=== PATIENT | female | born 1955 | race Caucasian/White ===

== ENCOUNTER 2022-06-08 16:23 | Inpatient (IN) ==
[2022-06-08] MEDS ORDERED: SODIUM CHLORIDE 0.9% 500 ML IV ONE (17:02)
[2022-06-08] MEDS ORDERED: PIPERACILLIN/TAZOBACTAM 4.5 GM/120 ML BAG IV ONE (17:02)
[2022-06-08 17:10] LABS: Basophils # (auto) 0.05 K/uL (0-0.2); Basophils % (auto) 0.5 %; Eosinophils # (auto) 0.09 K/uL (0-0.50); Eosinophils % (auto) 0.9 %; Hematocrit (blood only) 42.8 % (34.1-44.9); Hemoglobin 14.4 g/dl (12.0-16.0); Immature Granulocytes # (auto) 0.03 K/uL (0.00-0.02); Immature Granulocytes % (auto) 0.3 %; Lymphocytes # (auto) 1.39 K/uL (1.2-3.4); Lymphocytes % (auto) 13.9 %; Mean Corpuscular Hemoglobin 30.3 pg (25.0-34.0); Mean Corpuscular Hgb Conc 33.6 g/dL (32.0-36.0); Mean Corpuscular Volume 90.1 fL (80.0-100.0); Mean Platelet Volume 10.9 fL (9.4-12.3); Monocytes # (auto) 0.56 K/uL (0.24-0.82); Monocytes % (auto) 5.6 %; Neutrophils # (auto) 7.88 K/uL (1.4-6.5); Neutrophils % (auto) 78.8 %; Platelet Count 394 K/uL (130-400); RDW Coefficient of Variation 14.5 % (11.5-14.5); RDW Standard Deviation 47.6 fL (36.4-46.3); Red Blood Count 4.75 M/uL (3.93-5.22)
--- NOTE | 2022-06-08 17:13 | Emergency Department Note ---
Impression & Plan Obstructive jaundice ED Provider Note NAME: GURWINDER CASIANO AGE: 67 SEX: F : 1955 ARRIVES VIA: Walk-In INFORMANT: Patient, the patient's family member ED PROVIDER(S): Carlo Dykes DO CHIEF COMPLAINT: Jaundice HPI: The patient is a 67-year-old female who has no significant past medical history who presented to the emergency department for an evaluation of jaundice. The patient started noticing symptoms around the beginning of the year. She started noticing discoloration of her skin. She has had no abdominal pain nausea or vomiting. She was seen as an outpatient by gastroenterology group. She had outpatient laboratory studies as well as an MRCP. MRCP appears to be consistent with a thickened gallbladder with multiple gallstones. There is also a dilated common bile duct with intrahepatic ductal dilatation. There were no defects seen within the common bile duct presumably due to gallstones. The patient was also found to have an elevation in her LFTs including a total bilirubin of 11.3. She was advised to come to our facility for an ERCP. ROS: See above HPI for pertinent positives & negatives. A total of 10 systems reviewed and were otherwise negative. PAST MEDICAL HISTORY: See Below PAST SURGICAL HISTORY: See Below FAMILY HISTORY: See Below SOCIAL HISTORY: See Below HOME MEDICATIONS: See Below ALLERGIES: See Below VITALS: See Below PHYSICAL EXAMINATION: GENERAL: Patient is awake alert in no acute distress patient is resting comfortably and showing no signs of anxiety EYES: The conjunctivae are icteric. The pupils are round and reactive. EARS, NOSE, MOUTH AND THROAT: The nose is without any evidence of any deformity. Mucous membranes are moist. NECK: The neck is nontender and supple. RESPIRATORY: Normal respiratory effort is noted there is no evidence of wheezing rhonchi or rales CARDIOVASCULAR: Regular rate and rhythm noted there no murmurs rubs or gallops normal S1 normal S2. GASTROINTESTINAL: The abdomen is soft. Abdomen is nontender. MUSCULOSKELETAL/EXTREMITIES: There is no evidence of gross deformity full range of motion is noted in the hips and shoulders. SKIN: Pedal edema was noted bilaterally. Skin was warm and dry. Jaundice was appreciated. NEUROLOGIC: Patient is awake alert and oriented x3. Gait was steady. MEDICAL DECISION MAKING: The patient is a 67-year-old female who presented to the emergency department for an evaluation of abnormal labs. The patient was found to have elevated bilirubin. She is had a work-up as an outpatient which included laboratory studies as well as an MRCP. She was called by her primary gastroenterology group in [place] because of an abnormal MRCP and was told to go directly to an emergency department for an ERCP. I did review the patient's outpatient laborat ory and radiographic studies. These were faxed to our emergency department and I gave them to the admitting team. The patient was treated with IV fluids and IV antibiotics. I discussed her condition with the on-call [facility] hospitalist group. They have agreed to evaluate the patient in the emergency department for further management and disposition. Triage Nursing notes reviewed. Prior medical records reviewed Vital Signs: reviewed and remarkable for elevated blood pressure. Differential diagnosis: Patient presents with painless jaundice. Differential diagnosis could include cholecystitis, GI mass or tumor, obstructive jaundice, gallstones, infection, pancreatic pathology and other differential diagnoses were considered. ER treatment provided: See below Diagnostics interpreted by me: ECG: none Cardiac Monitoring: An order was placed for continuous cardiac monitoring. The monitor shows a rate of 101 bpm with sinus tachycardia. Laboratory studies: As stated above and show below. Imaging studies: See below. Radiographic imaging was reviewed by myself Consultation(s): I discussed the patient's condition with Dr. García who is on-call for gastroenterology. I discussed this case with Dr. Eddy who is on-call for the [facility] hospitalist group. Past Med/Surg History Social History Smoking Status: Never smoker Preferred Language: Sierra Leonean Feels Safe at Home: Yes Allergies Allergies Allergy/AdvReac Type Severity Reaction Status Date / Time Penicillins Allergy Anaphylaxis Verified 06/08/22 17:27 Home Meds Home Medications Medication Instructions Recorded Confirmed cholestyramine (with sugar) 4 gram 1 ea PO BID 06/08/22 06/08/22 oral powder hydroxyzine HCl 25 mg tablet 25 mg PO QID PRN as directed 06/08/22 06/08/22 Results & Data (ED) Vital Signs Vital Signs - 24 hr 06/08/22 16:27 Temperature 36.3 C L Temperature Source Temporal Artery Scan Pulse Rate 101 H Pulse Rhythm Regular Pulse Strength Normal Respiratory Rate 20 Respiratory Effort / Characteristics Non-Labored Spontaneous Respiratory Depth Normal Respiratory Pattern Regular Blood Pressure 156/105 H Blood Pressure Mean 122 Blood Pressure Position Sitting Pulse Oximetry 98 Oxygen Delivery Method Room Air Sepsis Recent Fever Within 48 Hours No Sepsis New/Unexplained Change in Mental Status No Sepsis Action Taken by Nursing No Action Required Home Medications Current Medication List: was personally reviewed by me Laboratory Data Attestation: I reviewed the patient's lab results. 06/08/22 17:00 06/08/22 17:00 Lab Results 06/08/22 06/08/22 06/08/22 Range/Units 17:00 17:00 17:40 WBC 10.00 (4.8-10.8) K/ul RBC 4.75 (3.93-5.22) M/uL Hgb 14.4 (12.0-16.0) g/dl Hct 42.8 (34.1-44.9) % MCV 90.1 (80.0-100.0) fL MCH 30.3 (25.0-34.0) pg MCHC 33.6 (32.0-36.0) g/dL RDW Std Deviation 47.6 H (36.4-46.3) fL RDW Coeff of Subhash 14.5 (11.5-14.5) % Plt Count 394 (130-400) K/uL MPV 10.9 (9.4-12.3) fL Immature Gran % (Auto) 0.3 % Neut % (Auto) 78.8 % Lymph % (Auto) 13.9 % [place] % (Auto) 5.6 % Eos % (Auto) 0.9 % Baso % (Auto) 0.5 % Neut # (Auto) 7.88 H (1.4-6.5) K/uL Lymph # (Auto) 1.39 (1.2-3.4) K/uL [place] # (Auto) 0.56 (0.24-0.82) K/uL Eos # (Auto) 0.09 (0-0.50) K/uL Baso # (Auto) 0.05 (0-0.2) K/uL Immature Gran # (Auto) 0.03 H (0.00-0.02) K/uL Sodium 135 L (136-145) mmol/L Potassium 3.7 (3.5-5.1) mmol/L Chloride 104 (98-107) mmol/L Carbon Dioxide 22 (21-32) mmol/L Anion Gap 9 (3-11) BUN 15 (6-23) mg/dl Creatinine 0.82 (0.6-1.2) mg/dl Est Cr Clr Drug Dosing Not Reportable Est GFR ( Amer) 85.8 ml/min Est GFR (Non-Af Amer) 74.0 ml/min BUN/Creatinine Ratio 18.3 (10-20) Glucose 145 H (70-99(Fasting)) mg/dl Calcium 9.7 (8.5-10.1) mg/dl Total Bilirubin 12.7 H (0.2-1.0) mg/dl Direct Bilirubin 7.2 H (0-0.2) mg/dl AST 32 (13-39) U/L ALT 59 H (7-52) U/L Alkaline Phosphatase 235 H (34-104) U/L Total Protein 7.9 (6.0-8.3) gm/dl Albumin 4.1 (3.4-5.0) gm/dl Globulin 3.8 (2.5-4.0) gm/dl Albumin/Globulin Ratio 1.1 (0.9-2) Lipase TNP Urine Color Dark Yellow Urine Appearance Clear (Clear) Urine pH 5.5 (4.5-7.5) Ur Specific [place] 1.010 (1.000-1.030) Urine Protein Negative (Negative) Urine Glucose (UA) Negative (Negative) Urine Ketones Negative (Negative) Urine Blood Negative (Negative) Urine Nitrite Negative (Negative) Urine Bilirubin 2+ H (Negative) Urine Urobilinogen Negative (Negative) Ur Leukocyte Esterase Trace H (Negative) Urine WBC (Auto) 5-10 H (0-5) /hpf Urine RBC (Auto) 0-4 (0-4) /hpf U Hyaline Cast (Auto) 1-5 (0-5) /lpf U Epithel Cells (Auto) 10-20 H (0-5) /lpf Urine Bacteria (Auto) Negative (Negative) SARS-CoV-2, RNA, NAAT (NEGATIVE) 06/08/22 Range/Units 17:42 WBC (4.8-10.8) K/ul RBC (3.93-5.22) M/uL Hgb (12.0-16.0) g/dl Hct (34.1-44.9) % MCV (80.0-100.0) fL MCH (25.0-34.0) pg MCHC (32.0-36.0) g/dL RDW Std Deviation (36.4-46.3) fL RDW Coeff of Subhash (11.5-14.5) % Plt Count (130-400) K/uL MPV (9.4-12.3) fL Immature Gran % (Auto) % Neut % (Auto) % Lymph % (Auto) % [place] % (Auto) % Eos % (Auto) % Baso % (Auto) % Neut # (Auto) (1.4-6.5) K/uL Lymph # (Auto) (1.2-3.4) K/uL [place] # (Auto) (0.24-0.82) K/uL Eos # (Auto) (0-0.50) K/uL Baso # (Auto) (0-0.2) K/uL Immature Gran # (Auto) (0.00-0.02) K/uL Sodium (136-145) mmol/L Potassium (3.5-5.1) mmol/L Chloride (98-107) mmol/L Carbon Dioxide (21-32) mmol/L Anion Gap (3-11) BUN (6-23) mg/dl Creatinine (0.6-1.2) mg/dl Est Cr Clr Drug Dosing Est GFR ( Amer) ml/min Est GFR (Non-Af Amer) ml/min BUN/Creatinine Ratio (10-20) Glucose (70-99(Fasting)) mg/dl Calcium (8.5-10.1) mg/dl Total Bilirubin (0.2-1.0) mg/dl Direct Bilirubin (0-0.2) mg/dl AST (13-39) U/L ALT (7-52) U/L Alkaline Phosphatase (34-104) U/L Total Protein (6.0-8.3) gm/dl Albumin (3.4-5.0) gm/dl Globulin (2.5-4.0) gm/dl Albumin/Globulin Ratio (0.9-2) Lipase Urine Color Urine Appearance (Clear) Urine pH (4.5-7.5) Ur Specific [place] (1.000-1.030) Urine Protein (Negative) Urine Glucose (UA) (Negative) Urine Ketones (Negative) Urine Blood (Negative) Urine Nitrite (Negative) Urine Bilirubin (Negative) Urine Urobilinogen (Negative) Ur Leukocyte Esterase (Negative) Urine WBC (Auto) (0-5) /hpf Urine RBC (Auto) (0-4) /hpf U Hyaline Cast (Auto) (0-5) /lpf U Epithel Cells (Auto) (0-5) /lpf Urine Bacteria (Auto) (Negative) SARS-CoV-2, RNA, NAAT NEGATIVE (NEGATIVE) Administered Medications Discontinued Medications Sodium Chloride (Nss) 500 mls @ 999 mls/hr IV .Q31M ONE Stop: 06/08/22 17:32 Last Infusion: 06/08/22 17:48 Dose: 0 mls/hr Documented By: Admin: 06/08/22 17:17 Dose: 999 mls/hr Documented By: CODY Piperacillin Sod/Tazobactam Sod (Zosyn) 4.5 gm in 120 mls @ 240 mls/hr IV NOW ONE Stop: 06/08/22 17:31 Last Admin: 06/08/22 17:39 Dose: Not Given Documented By: CODY Cefoxitin Sodium (Mefoxin) 2,000 mg in 60 mls @ 100 mls/hr IV NOW STA Stop: 06/08/22 18:01 Last Infusion: 06/08/22 18:11 Dose: 0 mls/hr Documented By: Admin: 06/08/22 17:35 Dose: 100 mls/hr Documented By: CODY Discharge Plan Visit Data Chief Complaint: Referred by Doctor Stated Complaint: REF BY DOC, ER CP ED Provider: Carlo Dykes Discharge Problem: Obstructive jaundice Patient Disposition: Being Evaluated by Hospitalist Forms Stand Alone Forms: [facility] Prescriptions Prescriptions: No Action hydroxyzine HCl 25 mg tablet 25 mg PO QID PRN (Reason: as directed) cholestyramine (with sugar) 4 gram powder 1 ea PO BID Rx Instructions: 1 scoop dissolved in water and drink Referrals Referrals: PCP,NO [Primary Care Provider] -
[2022-06-08] MEDS ORDERED: cefOXitin 2,000 MG/60 ML BAG IV STA (17:26)
[2022-06-08 17:50] LABS: Alanine Aminotransferase 59 U/L (7-52); Albumin Level 4.1 gm/dl (3.4-5.0); Anion Gap 9 (3-11); Aspartate Aminotransferase 32 U/L (13-39); BUN Creatinine Ratio 18.3 (10-20); Bilirubin Direct 7.2 mg/dl (0-0.2); Bilirubin,Total 12.7 mg/dl (0.2-1.0); Blood Urea Nitrogen 15 mg/dl (6-23); Calcium 9.7 mg/dl (8.5-10.1); Carbon Dioxide 22 mmol/L (21-32); Chloride 104 mmol/L (98-107); Est GFR (African American) 85.8 ml/min; Glucose 145 mg/dl (70-99(Fasting)); Potassium 3.7 mmol/L (3.5-5.1); Sodium 135 mmol/L (136-145); Total Protein 7.9 gm/dl (6.0-8.3)
[2022-06-08 17:51] LABS: Albumin Globulin Ratio 1.1 (0.9-2); Alkaline Phosphatase 235 U/L (34-104); Globulin 3.8 gm/dl (2.5-4.0)
[2022-06-08 18:13] LABS: Appearance Urine Clear (Clear); Bacteria Urine Automated Negative (Negative); Blood Urine Negative (Negative); Color Urine Dark Yellow; Glucose Urine UA Negative (Negative); Ketones Urine Negative (Negative); Leukocyte Esterase Urine Trace (Negative); Nitrite Urine Negative (Negative); Protein Urine Negative (Negative); RBC Urine Automated 0-4 /hpf (0-4); Urobilinogen Urine Negative (Negative); pH Urine 5.5 (4.5-7.5)
[2022-06-08 18:15] LABS: Bilirubin Urine 2+ (Negative)
--- NOTE | 2022-06-08 18:35 | History & Physical Report ---
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 Painless jaundice, transaminitis, pruritus, gallstones, pancreatic masses Patient with a three-week history of indigestion, 2.5-week history of pruritus, and 10-day history of jaundice Initial vitals notable only for elevated BP and mild tachycardia Initial labs showing a worsening of Tbili from five days ago (11.3 to 12.7), improvement in Dbili (9.2 to 7.2), improvement in AST (139 to 32), improvement in ALT (240 to 59), equivocal alkphos (235 to 240), and an improvement in Tprotein (9.2 to 7.9) MRCP findings (06/03) noted in HPI Admit to med/surg Gastroenterology consulted for consideration of ERCP General surgery consulted d/t gallstones NPO at midnight Hold cholestyramine NSS @ 80mL/hr Continue cefoxitin, add metronidazole for prophylaxis HIM request submitted to obtain images from [facility] Trend CBC, CMP FEN: low fat diet, NPO @ midnight, NSS @ 80mL/hr (x2 bags ordered) Code status: full code DVT ppx: SCDs Held home meds: cholestyramine Consults: gastroenterology PT/OT: ordered Dispo: med/surg (2) Transaminitis: (3) Gallstones: (4) Choledocholithiasis: History of Present Illness Primary Care Provider: NO PCP 67yo female without significant medical history presents to [facility] 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 About three weeks ago, patient developed indigestion which resolved with prilosec. Then, about 2.5 week ago, patient developed severe itchiness unresponsive to steroid creams and hydroxyzine, though with some improvement with cholestyramine. Then, about ten days ago, patient developed yellowing of the skin on her arms, legs, trunk, and face. Patient denies fever, chills, headache, CP, palpitations, SOB, edema, abdominal pain, nausea, vomiting, dysuria, hematochezia, melena, back pain, lightheadedness, dizziness, numbness, tingling, weakness, or other symptoms. Denies recent illness and recent travel. Patient has had an ongoing workup by her crusher setter at [facility] ([facility]); patient had labs done five days ago which showed the following: Total bilirubin 11.3 Direct bilirubin 9.2 Indirect bilirubin 2.1 Alk phos: 263 AST 139 ALT 240 Total protein 9.2 Patient had an MRCP performed the same day which showed the following: Gallbladder wall thickened; multiple gallstones in gallbladder; US gallbladder recommended Common bile duct is mildly dilated measuring up to 8mm in diameter; mild intrahepatic ductal dilatation is seen Four or five rounded filling defects are seen within the common bile duct, probably due to gallstones Two small rounded areas of fluid signal intensity are seen in the region of the body/tail of the pancreas measuring up to 4mm in diameter suggesting small intraductal papillary mucinous neoplasms As a result of these lab and imaging results, patient was sent to the [facility] ED for urgent ERCP. Upon arrival, vitals were notable for elevated BP (150s/100s) and mild tachycardia (101); no tachypnea, patient afebrile, spO2 adequate on room air. Initial labs were notable for elevated Tbili (12.7), elevated Dbili (7.2), elevated ALT (59), and elevated alkphos (235); no leukocytosis, no anemia, platelets wnl, no electrolyte abnormalities, creatinine not elevated, AST not elevated, total protein/albumin/globulin not elevated, covid PCR negative. In the ED, patient received an NSS 500mL bolus (x1) and a dose of cefoxitin. Surrogate decision-maker in case of an emergency: angela Peñaloza (cell: [phone]) Allergies Allergy/AdvReac Type Severity Reaction Status Date / Time Penicillins Allergy Anaphylaxis Verified 06/08/22 17:27 Home Medications Medication Instructions Recorded Confirmed Type cholestyramine (with sugar) 4 gram 1 ea PO BID 06/08/22 06/08/22 History oral powder hydroxyzine HCl 25 mg tablet 25 mg PO QID PRN as directed 06/08/22 06/08/22 History Past Med/Surg History Medical History Patel's palsy Recurrent pyelonephritis Surgical History History of arthroscopic knee surgery History of repair of ACL Social History Smoking Status: Never smoker Second Hand Exposure: No; Do You Dip or Chew Tobacco: No; Tobacco Cessation Education Requested by Patient: No Hx Alcohol Use: No Hx Substance Use: No Preferred Language: Hebrew Communication Ability: Effective Medication Technician Required: No Beliefs That Will Affect Care: None Current Living Situation: Family Other Information That Helps Us Care for You: No Feels Safe at Home: Yes Safety Concerns: Feels Safe At This Time Assistive Devices: None Physical Exam Physical Exam: Constitutional: well-appearing, no acute distress CV: regular rhythm, no murmur appreciated, extremities well-perfused, no LE edema Resp: CTABL, no wheezes/rales/rhonchi appreciated, no increased work of breathing GI: soft, nondistended, nontender, BS normoactive MSK: no gross deformities appreciated Skin: mild jaundice of face, arms, legs, and trunk appreciated; mild subcentimeter excoriations on back noted Neuro: alert, oriented, no focal neurologic deficit appreciated Results & Data Results & Data ([facility]) Vital Signs (Past 12 Hours) Vital Signs Temp Pulse Resp BP Pulse Ox O2 Del Method 06/08/22 16:27 36.3 C L 101 H 20 156/105 H 98 Room Air Laboratory Results Abnormal lab results 06/08/22 06/08/22 06/08/22 Range/Units 17:00 17:00 17:40 RDW Std Deviation 47.6 H (36.4-46.3) fL Neut # (Auto) 7.88 H (1.4-6.5) K/uL Immature Gran # (Auto) 0.03 H (0.00-0.02) K/uL Sodium 135 L (136-145) mmol/L Glucose 145 H (70-99(Fasting)) mg/dl Total Bilirubin 12.7 H (0.2-1.0) mg/dl Direct Bilirubin 7.2 H (0-0.2) mg/dl ALT 59 H (7-52) U/L Alkaline Phosphatase 235 H (34-104) U/L Urine Bilirubin 2+ H (Negative) Ur Leukocyte Esterase Trace H (Negative) Urine WBC (Auto) 5-10 H (0-5) /hpf U Epithel Cells (Auto) 10-20 H (0-5) /lpf Medications Administered ER medications given: NSS 500 mL bolus Cefoxitin 2 g IV Code Status & VTE Plan Code Status Full Supervising Physician Co-Signing Physician Notes I personally saw and examined the patient. I verified all santiago points and agree with resident physician Dr Meneses, with the following exceptions and/or additions: 67-year-old female admission for painless jaundice however reassuringly choledocholithiasis already seen on outpatient MRCP. O/E Nonseptic appearing, icteric sclerae, moderate jaundice of all 4 extremities and trunk, mild jaundice of face, no acute distress, HS1+2, no murmurs, Chest CTAB, Abdo SNT A/P Choledocholithiasis causing obstructive jaundice - WBC normal, afebrile and no current right upper quadrant pain - do not suspect acute cholecystitis at this time. Regardless, it would be advisable to remove her gallbladder due to the choledocholithiasis and will consult surgery regarding this. Recommend antibiotic prophylaxis with cefuroxime and metronidazole. N.p.o. after midnight and consult gastroenterology for ERCP tomorrow. Noted pancreatic masses on MRCP however these are not in the region of the head of the pancreas and not causing any biliary compression despite history of painless jaundice. 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 Resident Activity Tracking Resident Involvement: Resident Care Provided and [employer] Coverage Note Care Provided: Adult Hospital Medicine
[2022-06-08] MEDS ORDERED: ONDANSETRON INJ 2 MG/ML 2 ML VIAL IV PRN (18:57)
[2022-06-08] MEDS: SODIUM CHLORIDE 0.9% 1000ML 1,000 ML IV SCH (20:18)
--- NOTE | 2022-06-08 21:06 | Billing Data ---
Date of Service June 08, 2022 Coding Level of Care Code 42335 INT INP/OBS CARE
[2022-06-08] MEDS: metroNIDAZOLE 500 MG/100 ML BAG IV SCH (21:14)
--- NOTE | 2022-06-08 21:53 | XRay Report ---
XR chest 1V portable HISTORY: pre-op COMPARISON: None. FINDINGS: No pneumothorax. No pleural effusions. The cardiac silhouette is normal in size. A few line ar scarlike densities seen within the bilateral lower lobes, left greater than right. Otherwise, the lungs are clear. No evidence for pulmonary edema. IMPRESSION: A few bilateral lower lobe linear scarlike densities. Otherwise, no acute process within the chest. ACT 112: Negative or not required by law. Electronically signed by: Kalen Turner M.D. 06/08/2022 9:51 PM
[2022-06-09] MEDS: cefUROXime 1,500 MG in DEXTROSE 5% 100 ML IV SCH ×3 (01:27→17:36)
[2022-06-09] MEDS: metroNIDAZOLE 500 MG/100 ML BAG IV SCH ×3 (04:20→20:11)
[2022-06-09] MEDS ORDERED: diphenhydrAMINE Capsule 25 MG CAP PO ONE (04:39)
[2022-06-09] MEDS ORDERED: diphenhydrAMINE 50 MG/ML VIAL ONE (04:58)
[2022-06-09 06:51] LABS: Hematocrit (blood only) 38.5 % (34.1-44.9); Mean Corpuscular Hemoglobin 30.4 pg (25.0-34.0); Mean Corpuscular Hgb Conc 33.8 g/dL (32.0-36.0); Mean Platelet Volume 10.8 fL (9.4-12.3); Platelet Count 338 K/uL (130-400); RDW Coefficient of Variation 14.6 % (11.5-14.5); RDW Standard Deviation 48.3 fL (36.4-46.3); Red Blood Count 4.28 M/uL (3.93-5.22); White Blood Count 9.66 K/ul (4.8-10.8)
[2022-06-09 07:26] LABS: Albumin Globulin Ratio 1.1 (0.9-2); Albumin Level 3.5 gm/dl (3.4-5.0); BUN Creatinine Ratio 15.1 (10-20); Bilirubin,Total 12.8 mg/dl (0.2-1.0); Creatinine Clr Calc Pharmacy 91.5 ml/min; Est GFR (African American) 98.8 ml/min; Est GFR (Non-African American) 85.2 ml/min; Globulin 3.3 gm/dl (2.5-4.0); Magnesium 1.9 mg/dl (1.7-2.4); Potassium 3.4 mmol/L (3.5-5.1); Total Protein 6.8 gm/dl (6.0-8.3)
[2022-06-09 07:54] LABS: Prothrombin Time 10.6 Seconds (9.0-12.0)
--- NOTE | 2022-06-09 08:12 | Anesthesiology Consultation ---
Date of Service June 09, 2022 Assessment & Plan (1) Encounter for pre-operative examination: Chart Review Chart Review: Acceptable Risk for Surgery and Patient NOT seen in Pre Admission Testing will order ECG preop Consults Requested none History Surgery Operation Date: 06/09/22 07:00 Proposed Procedures p Endoscopic Ultrasonography Upper - Lavelle Arroyo MD s Endoscopic Retrograde Cholangiopancreatography - Lavelle Arroyo MD Height/Weight Height: 5 ft 8 in Weight: 97.9 kg Allergies Allergy/AdvReac Type Severity Reaction Status Date / Time Penicillins Allergy Anaphylaxis Verified 06/08/22 17:27 Medications Home Medications Medication Instructions Recorded Confirmed Last Taken cholestyramine (with sugar) 4 gram 1 ea PO BID 06/08/22 06/08/22 Unknown oral powder hydroxyzine HCl 25 mg tablet 25 mg PO QID PRN as directed 06/08/22 06/08/22 Unknown Active Medications Generic Name Dose Route Start Last Admin Trade Name Freq PRN Reason Stop Dose Admin Sodium Chloride 1,000 mls @ 80 mls/hr 06/08/22 19:00 06/08/22 20:18 Nss 1000ml IV 06/09/22 19:59 80 mls/hr .[id number] DAVID Administration Metronidazole 500 mg in 100 mls @ 100 mls/hr 06/08/22 20:00 06/09/22 05:19 Flagyl IV 06/10/22 19:59 Infused Q8H DAVID Infusion Cefuroxime Sodium 1,500 mg/ 115 mls @ 200 mls/hr 06/09/22 01:00 06/09/22 02:05 Dextrose IV 06/13/22 00:59 Infused Q8H DAVID Infusion Protocol Past Medical History Medical History (Updated 06/09/22 @ 08:12 by Vitaliy Osman MD) Patel's palsy Obstructive jaundice Recurrent pyelonephritis Past Surgical History Surgical History History of arthroscopic knee surgery History of repair of ACL Social History Smoking Status: Never smoker Do You Dip or Chew Tobacco: No Hx Alcohol Use: No Hx Substance Use: No substance use type: does not use Physical Exam Vital Signs Last Vital Signs Temp 36.7 C 06/09/22 07:02 Pulse 80 06/09/22 07:02 Resp 16 06/09/22 07:02 BP 164/93 H 06/09/22 07:02 Pulse Ox 96 06/09/22 07:02 O2 Del Method 06/09/22 07:02 Testing Laboratory Results 06/09/22 06:36 06/09/22 06:36 PT 10.6 Seconds (9.0-12.0) 06/09/22 06:36 INR 1.0 (0.9-1.1) 06/09/22 06:36 Urine Color Dark Yellow 06/08/22 17:40 Urine Appearance Clear (Clear) 06/08/22 17:40 Urine pH 5.5 (4.5-7.5) 06/08/22 17:40 Ur Specific [place] 1.010 (1.000-1.030) 06/08/22 17:40 Urine Protein Negative (Negative) 06/08/22 17:40 Urine Glucose (UA) Negative (Negative) 06/08/22 17:40 Urine Ketones Negative (Negative) 06/08/22 17:40 Urine Nitrite Negative (Negative) 06/08/22 17:40 Ur Leukocyte Esterase Trace (Negative) H 06/08/22 17:40 Urine WBC (Auto) 5-10 /hpf (0-5) H 06/08/22 17:40 Urine RBC (Auto) 0-4 /hpf (0-4) 06/08/22 17:40 U Hyaline Cast (Auto) 1-5 /lpf (0-5) 06/08/22 17:40 U Epithel Cells (Auto) 10-20 /lpf (0-5) H 06/08/22 17:40 Urine Bacteria (Auto) Negative (Negative) 06/08/22 17:40
[2022-06-09] MEDS: SODIUM CHLORIDE 0.9% 1000ML 1,000 ML IV SCH (08:31)
[2022-06-09] MEDS: diphenhydrAMINE 50 MG/ML VIAL IV PRN ×3 (09:01→20:11)
--- NOTE | 2022-06-09 09:29 | Gastrointestinal Consultation ---
Date of Consultation June 09, 2022 Assessment & Plan (1) Obstructive jaundice: 67 year old female admitted with pruritus, jaundice and report of OP MRCP at OSH showing gallstones. Will need to review images and report when able but given degree of Tbili elevation will plan for procedure today. Request MRCP NPO Plan for EUS +/- ERCP today IV maintenance fluids Analgesia PRN Antiemetics PRN Thank you for allowing us to participate in the care of this patient. Please call with any acute changes, questions or concerns. Please see addendum below with additional recommendation from my supervising physician. Supervising Physician Co-Signing Physician Notes I have seen and examined the patient with Ramy Hawthorne. NICHOLAS whose note reflects our findings and plan. Obstructive jaundice with pruritis, no pain. No fevers. No pancreatitis. + MRCP at OSH. Weight losss. She will have an EUS +/- ERCP later today. History of Present Illness Reason for Consultation: eus ercp request Requesting Physician: Irvin Attending Physician: Jon Russell History of Present Illness 67 year old female referred to the ED for evaluation of jaundice, pruritus and suspected CBD stone at the request of Delonte Richards. She suggests she developed generalized itching about 3 weeks ago, family noted yellow skin about 1-2 weeks ago. Clinically, she feels fine. Denies abd pain. No nausea, vomiting. Appetite okay. No change in bowel habits. Denies black or bloody stools. Does, however, report weight loss 45 lbs over the last year. She suggests this was partially intentional but also was not fully. MRCP: not available to me, done at OSH, but reports CBD stone Allergies Allergy/AdvReac Type Severity Reaction Status Date / Time Penicillins Allergy Anaphylaxis Verified 06/08/22 17:27 Home Medications Medication Instructions Recorded Confirmed Type cholestyramine (with sugar) 4 gram 1 ea PO BID 06/08/22 06/08/22 History oral powder hydroxyzine HCl 25 mg tablet 25 mg PO QID PRN as directed 06/08/22 06/08/22 History Patient History Medical History (Updated 06/09/22 @ 08:12 by Vitaliy Osman MD) Patel's palsy Obstructive jaundice Recurrent pyelonephritis Surgical History History of arthroscopic knee surgery History of repair of ACL Social History Smoking Status: Never smoker Second Hand Exposure: No; Do You Dip or Chew Tobacco: No; Tobacco Cessation Education Requested by Patient: No Hx Alcohol Use: No Hx Substance Use: No Preferred Language: Guyanese Communication Ability: Effective Senior Integration Developer Required: No Beliefs That Will Affect Care: None Current Living Situation: Family Other Information That Helps Us Care for You: No Feels Safe at Home: Yes Safety Concerns: Feels Safe At This Time Assistive Devices: None Review of Systems Review of Systems: All systems reviewed & are unremarkable except as noted in HPI & below Physical Exam Constitutional: WD/WN, vitals as above Respiratory: normal respiratory effort, lungs clear to auscultation Cardiovascular: RRR, no murmur, no edema Gastrointestinal (Abdomen): normal bowel sounds, soft, nontender, no hepatosplenomegaly Skin: + jaundice Results & Data ([facility]) Vital Signs (Past 12 Hours) Vital Signs Temp Pulse Resp BP Pulse Ox O2 Del Method 06/09/22 07:02 36.7 C 80 16 164/93 H 96 Room Air Laboratory Results 06/09/22 06/09/22 06/09/22 Range/Units 06:36 06:36 06:36 WBC 9.66 (4.8-10.8) K/ul RBC 4.28 (3.93-5.22) M/uL Hgb 13.0 (12.0-16.0) g/dl Hct 38.5 (34.1-44.9) % MCV 90.0 (80.0-100.0) fL MCH 30.4 (25.0-34.0) pg MCHC 33.8 (32.0-36.0) g/dL RDW Std Deviation 48.3 H (36.4-46.3) fL RDW Coeff of Subhash 14.6 H (11.5-14.5) % Plt Count 338 (130-400) K/uL MPV 10.8 (9.4-12.3) fL Immature Gran % (Auto) % Neut % (Auto) % Lymph % (Auto) % [place] % (Auto) % Eos % (Auto) % Baso % (Auto) % Neut # (Auto) (1.4-6.5) K/uL Lymph # (Auto) (1.2-3.4) K/uL [place] # (Auto) (0.24-0.82) K/uL Eos # (Auto) (0-0.50) K/uL Baso # (Auto) (0-0.2) K/uL Immature Gran # (Auto) (0.00-0.02) K/uL PT 10.6 (9.0-12.0) Seconds INR 1.0 (0.9-1.1) Sodium 136 (136-145) mmol/L Potassium 3.4 L (3.5-5.1) mmol/L Chloride 107 (98-107) mmol/L Carbon Dioxide 23 (21-32) mmol/L Anion Gap 6 (3-11) BUN 11 (6-23) mg/dl Creatinine 0.73 (0.6-1.2) mg/dl Est Cr Clr Drug Dosing 91.5 Est GFR ( Amer) 98.8 ml/min Est GFR (Non-Af Amer) 85.2 ml/min BUN/Creatinine Ratio 15.1 (10-20) Glucose 102 H (70-99(Fasting)) mg/dl Calcium 9.0 (8.5-10.1) mg/dl Phosphorus 3.0 (2.5-4.9) mg/dl Magnesium 1.9 (1.7-2.4) mg/dl Total Bilirubin 12.8 H (0.2-1.0) mg/dl Direct Bilirubin (0-0.2) mg/dl AST 27 (13-39) U/L ALT 46 (7-52) U/L Alkaline Phosphatase 207 H (34-104) U/L Total Protein 6.8 (6.0-8.3) gm/dl Albumin 3.5 (3.4-5.0) gm/dl Globulin 3.3 (2.5-4.0) gm/dl Albumin/Globulin Ratio 1.1 (0.9-2) Lipase Urine Color Urine Appearance (Clear) Urine pH (4.5-7.5) Ur Specific [place] (1.000-1.030) Urine Protein (Negative) Urine Glucose (UA) (Negative) Urine Ketones (Negative) Urine Blood (Negative) Urine Nitrite (Negative) Urine Bilirubin (Negative) Urine Urobilinogen (Negative) Ur Leukocyte Esterase (Negative) Urine WBC (Auto) (0-5) /hpf Urine RBC (Auto) (0-4) /hpf U Hyaline Cast (Auto) (0-5) /lpf U Epithel Cells (Auto) (0-5) /lpf Urine Bacteria (Auto) (Negative) SARS-CoV-2, RNA, NAAT (NEGATIVE) 06/08/22 06/08/22 06/08/22 Range/Units 17:42 17:40 17:00 WBC (4.8-10.8) K/ul RBC (3.93-5.22) M/uL Hgb (12.0-16.0) g/dl Hct (34.1-44.9) % MCV (80.0-100.0) fL MCH (25.0-34.0) pg MCHC (32.0-36.0) g/dL RDW Std Deviation (36.4-46.3) fL RDW Coeff of Subhash (11.5-14.5) % Plt Count (130-400) K/uL MPV (9.4-12.3) fL Immature Gran % (Auto) % Neut % (Auto) % Lymph % (Auto) % [place] % (Auto) % Eos % (Auto) % Baso % (Auto) % Neut # (Auto) (1.4-6.5) K/uL Lymph # (Auto) (1.2-3.4) K/uL [place] # (Auto) (0.24-0.82) K/uL Eos # (Auto) (0-0.50) K/uL Baso # (Auto) (0-0.2) K/uL Immature Gran # (Auto) (0.00-0.02) K/uL PT (9.0-12.0) Seconds INR (0.9-1.1) Sodium 135 L (136-145) mmol/L Potassium 3.7 (3.5-5.1) mmol/L Chloride 104 (98-107) mmol/L Carbon Dioxide 22 (21-32) mmol/L Anion Gap 9 (3-11) BUN 15 (6-23) mg/dl Creatinine 0.82 (0.6-1.2) mg/dl Est Cr Clr Drug Dosing Not Reportable Est GFR ( Amer) 85.8 ml/min Est GFR (Non-Af Amer) 74.0 ml/min BUN/Creatinine Ratio 18.3 (10-20) Glucose 145 H (70-99(Fasting)) mg/dl Calcium 9.7 (8.5-10.1) mg/dl Phosphorus (2.5-4.9) mg/dl Magnesium (1.7-2.4) mg/dl Total Bilirubin 12.7 H (0.2-1.0) mg/dl Direct Bilirubin 7.2 H (0-0.2) mg/dl AST 32 (13-39) U/L ALT 59 H (7-52) U/L Alkaline Phosphatase 235 H (34-104) U/L Total Protein 7.9 (6.0-8.3) gm/dl Albumin 4.1 (3.4-5.0) gm/dl Globulin 3.8 (2.5-4.0) gm/dl Albumin/Globulin Ratio 1.1 (0.9-2) Lipase TNP Urine Color Dark Yellow Urine Appearance Clear (Clear) Urine pH 5.5 (4.5-7.5) Ur Specific [place] 1.010 (1.000-1.030) Urine Protein Negative (Negative) Urine Glucose (UA) Negative (Negative) Urine Ketones Negative (Negative) Urine Blood Negative (Negative) Urine Nitrite Negative (Negative) Urine Bilirubin 2+ H (Negative) Urine Urobilinogen Negative (Negative) Ur Leukocyte Esterase Trace H (Negative) Urine WBC (Auto) 5-10 H (0-5) /hpf Urine RBC (Auto) 0-4 (0-4) /hpf U Hyaline Cast (Auto) 1-5 (0-5) /lpf U Epithel Cells (Auto) 10-20 H (0-5) /lpf Urine Bacteria (Auto) Negative (Negative) SARS-CoV-2, RNA, NAAT NEGATIVE (NEGATIVE) 06/08/22 Range/Units 17:00 WBC 10.00 (4.8-10.8) K/ul RBC 4.75 (3.93-5.22) M/uL Hgb 14.4 (12.0-16.0) g/dl Hct 42.8 (34.1-44.9) % MCV 90.1 (80.0-100.0) fL MCH 30.3 (25.0-34.0) pg MCHC 33.6 (32.0-36.0) g/dL RDW Std Deviation 47.6 H (36.4-46.3) fL RDW Coeff of Subhash 14.5 (11.5-14.5) % Plt Count 394 (130-400) K/uL MPV 10.9 (9.4-12.3) fL Immature Gran % (Auto) 0.3 % Neut % (Auto) 78.8 % Lymph % (Auto) 13.9 % [place] % (Auto) 5.6 % Eos % (Auto) 0.9 % Baso % (Auto) 0.5 % Neut # (Auto) 7.88 H (1.4-6.5) K/uL Lymph # (Auto) 1.39 (1.2-3.4) K/uL [place] # (Auto) 0.56 (0.24-0.82) K/uL Eos # (Auto) 0.09 (0-0.50) K/uL Baso # (Auto) 0.05 (0-0.2) K/uL Immature Gran # (Auto) 0.03 H (0.00-0.02) K/uL PT (9.0-12.0) Seconds INR (0.9-1.1) Sodium (136-145) mmol/L Potassium (3.5-5.1) mmol/L Chloride (98-107) mmol/L Carbon Dioxide (21-32) mmol/L Anion Gap (3-11) BUN (6-23) mg/dl Creatinine (0.6-1.2) mg/dl Est Cr Clr Drug Dosing Est GFR ( Amer) ml/min Est GFR (Non-Af Amer) ml/min BUN/Creatinine Ratio (10-20) Glucose (70-99(Fasting)) mg/dl Calcium (8.5-10.1) mg/dl Phosphorus (2.5-4.9) mg/dl Magnesium (1.7-2.4) mg/dl Total Bilirubin (0.2-1.0) mg/dl Direct Bilirubin (0-0.2) mg/dl AST (13-39) U/L ALT (7-52) U/L Alkaline Phosphatase (34-104) U/L Total Protein (6.0-8.3) gm/dl Albumin (3.4-5.0) gm/dl Globulin (2.5-4.0) gm/dl Albumin/Globulin Ratio (0.9-2) Lipase Urine Color Urine Appearance (Clear) Urine pH (4.5-7.5) Ur Specific [place] (1.000-1.030) Urine Protein (Negative) Urine Glucose (UA) (Negative) Urine Ketones (Negative) Urine Blood (Negative) Urine Nitrite (Negative) Urine Bilirubin (Negative) Urine Urobilinogen (Negative) Ur Leukocyte Esterase (Negative) Urine WBC (Auto) (0-5) /hpf Urine RBC (Auto) (0-4) /hpf U Hyaline Cast (Auto) (0-5) /lpf U Epithel Cells (Auto) (0-5) /lpf Urine Bacteria (Auto) (Negative) SARS-CoV-2, RNA, NAAT (NEGATIVE)
--- NOTE | 2022-06-09 09:56 | Progress Note ---
Date of Service June 09, 2022 Assessment & Plan (1) Obstructive jaundice: Plan: 67yo female without significant medical history presents to [facility] upon the request of her principal solutions architect for an ERCP after labs showed obstructive jaundice and MRCP imaging showed gallbladder wall thickening, multiple gallstones, CBD dilation, intrahepatic ductal dilation, and two small areas of signal intensity of the pancreas body/tail suggestive of neoplasms. Painless jaundice, transaminitis, pruritus, gallstones, pancreatic masses Patient with a three-week history of indigestion, 2.5-week history of pruritus, and 10-day history of jaundice Initial labs showing a worsening of Tbili from five days ago (11.3 to 12.7), improvement in Dbili (9.2 to 7.2), improvement in AST (139 to 32), improvement in ALT (240 to 59), equivocal alkphos (235 to 240), and an improvement in Tprotein (9.2 to 7.9) MRCP findings (06/03) noted in HPI ERCP scheduled for today per GI NSS @ 80mL/hr Continue cefoxitin, add metronidazole for prophylaxis HIM request submitted to obtain images from [facility] Trend CBC, CMP FEN: low fat diet, NPO @ midnight, NSS @ 80mL/hr (x2 bags ordered) Code status: full code DVT ppx: SCDs Held home meds: cholestyramine Consults: gastroenterology PT/OT: ordered Dispo: med/surg (2) Transaminitis: (3) Gallstones: (4) Choledocholithiasis: Admission and Anticipated Discharge Date Admission Date: June 08, 2022 Subjective Patient was seen and evaluated by myself this morning. She reports persistent itching of the skin, but otherwise offers no other significant complaints. She is recently seen GI and is waiting there assessment for intervention Review of Systems Review of Systems: A complete 10 point review of systems was reviewed with the patient with pertinent positives and negatives as per history of present illness. All else were negative. Physical Exam Physical Exam: VITAL SIGNS - Vital signs and nursing notes were reviewed. GENERAL - 67-year-old female appearing her stated age who is in no acute distress. Communicates well with provider and answers questions appropriately. SKIN - Jaundiced. LUNGS - Chest wall symmetric without accessory muscle use, intercostals retractions, or central cyanosis. Normal vesicular breath sounds CTA B/L. No wheezes, rales, or rhonchi appreciated. CARDIAC - RRR with S1/S2. No murmur, rubs, or gallops appreciated. ABDOMEN - Abdominal contour obese without pulsations or visible masses. BS normoactive all four quadrants. No tenderness to palpation appreciated throughout. EXTREMITIES - No clubbing or peripheral cyanosis. No pretibial edema present. +3/5 radial and dorsalis pedis pulses palpated throughout. +5/5 strength noted in UE/LE bilaterally. PSYCH - A&Ox3 and cooperates fully with examiner. Pt is very pleasant and interacts well with examiner. Results & Data ([facility]) Vital Signs (Past 12 Hours) Vital Signs Temp Pulse Resp BP Pulse Ox O2 Del Method 06/09/22 07:02 36.7 C 80 16 164/93 H 96 Room Air PG Care Time/CCT Total # of Minutes Spent Total Time Spent with Patient: Total time spent is greater than 50% in coordination of care (as documented) at patient's floor/unit and/or counseling patient: Coding Level of Care Code 93355 SUB INP/OBS CARE 3/50MIN Diagnoses Obstructive jaundice K83.1 Transaminitis R74.01 Gallstones K80.20 Choledocholithiasis K80.50 Time Spent (min) 32
--- NOTE | 2022-06-09 13:56 | Surgery Consultation ---
Date of Consultation June 09, 2022 Assessment & Plan (1) Choledocholithiasis: This is a 67y F with no significant PMH who presents to the [facility] ED on 06/08/22 after referral by OSH general engineer for abnormal liver enzymes, jaundice/pruritus, and + MRCP findings. MRCP apparently revealed findings of a thickened gallbladder with gallstones, an 8mm common bile duct with filling defects. Along with 2 lesions in the body/tail of the pancreas suggesting IPMN. Today patient's labs reveal WBC 9.6, Tb 12.8, SAT 27, ALT 46. Patients vital signs are stable. On exam her abdomen is soft, non distended, non tender. She is jaundiced with scleral icterus. The GI team is planning on performing EUS/ERCP today. We will await their workup prior to consideration of cholecystectomy. (2) Obstructive jaundice: Supervising Physician Co-Signing Physician Notes I personally saw and evaluated the patient with Kelin Vigil PA-C and agree with the assessment and plan. 67-year-old female with obstructive jaundice, painless, cholelithiasis Reviewed outside hospital records and imaging She does have gallstones and obstructive jaundice pattern Without any pain, concern would be for malignancy She is scheduled for an EUS/ERCP today with GI We will follow-up these results Will follow History of Present Illness Attending Physician: Jon Russell History of Present Illness This is a 67y F with no significant PMH who presents to the [facility] ED on 06/08/22 after referral by OSH general engineer for abnormal liver enzymes, jaundice, and + MRCP findings. MRCP apparently revealed findings of a thickened gallbladder with gallstones, an 8mm common bile duct with filling defects. Along with 2 lesions in the body/tail of the pancreas suggesting IPMN. The patient states she developed pruritus about 2.5-3 weeks ago and then jaundice about 1 week ago. She has been following with a general engineer who worked her up as above. The patient denies any abdominal pain, nausea, vomiting, fevers/chills. Reports some intentional weight loss. + constipation. No prior abdominal surgical history. Allergies Allergy/AdvReac Type Severity Reaction Status Date / Time Penicillins Allergy Anaphylaxis Verified 06/08/22 17:27 Home Medications Medication Instructions Recorded Confirmed Type cholestyramine (with sugar) 4 gram 1 ea PO BID 06/08/22 06/08/22 History oral powder hydroxyzine HCl 25 mg tablet 25 mg PO QID PRN as directed 06/08/22 06/08/22 History Patient History Medical History (Updated 06/09/22 @ 08:12 by Vitaliy Osman MD) Patel's palsy Obstructive jaundice Recurrent pyelonephritis Surgical History History of arthroscopic knee surgery History of repair of ACL Social History Smoking Status: Never smoker Second Hand Exposure: No; Do You Dip or Chew Tobacco: No; Tobacco Cessation Education Requested by Patient: No Hx Alcohol Use: No Hx Substance Use: No Preferred Language: Iraqi Communication Ability: Effective Strategy Execution Consultant Required: No Beliefs That Will Affect Care: None Current Living Situation: Family Other Information That Helps Us Care for You: No Feels Safe at Home: Yes Safety Concerns: Feels Safe At This Time Assistive Devices: None Review of Systems Constitutional: + weight loss (intentional); no fever, no chills and no anorexia Eyes: yellowing of the whites of the eyes Respiratory: no dyspnea Cardiovascular: no chest pain Gastrointestinal: + bloating (mild) and + constipation; no abdominal pain, no nausea and no vomiting Integumentary: + yellowing of the skin Physical Exam Physical Exam: awake/alert, no acute distress Constitutional: well developed and well nourished; no acute distress Eyes: scleral icterus Respiratory: normal respiratory effort Gastrointestinal (Abdomen): Inspection/Auscultation: abdomen not distended Percussion/Palpation: abdomen soft; abdomen nontender Skin: + jaundice Results & Data ([facility]) Vital Signs (Past 12 Hours) Vital Signs Temp Pulse Resp BP Pulse Ox O2 Del Method 06/09/22 07:02 36.7 C 80 16 164/93 H 96 Room Air PG Care Time/CCT Total # of Minutes Spent Total Time Spent with Patient: Total time spent is greater than 50% in coordination of care (as documented) at patient's floor/unit and/or counseling patient: Coding Level of Care Code 63142 INT INP/OBS CARE 1/40MIN Diagnoses Choledocholithiasis K80.50 Obstructive jaundice K83.1
[2022-06-09] MEDS ORDERED: INDOMETHACIN 50 MG SUPP PR ONE (14:30)
[2022-06-09] MEDS ORDERED: fentaNYL citrate 100 MCG/2 ML VIAL ONE (14:42)
[2022-06-09] MEDS ORDERED: SUCCINYLCHOLINE CHLORIDE 20 MG/ML 10 ML VIAL IV ONE (14:44)
[2022-06-09] MEDS ORDERED: LIDOCAINE 2% MPF LOCAL 5 ML VIAL INFIL ONE (14:44)
[2022-06-09] MEDS ORDERED: ONDANSETRON INJ 2 MG/ML 2 ML VIAL ONE (14:44)
[2022-06-09] MEDS ORDERED: PROPOFOL IV EMULSION 10 MG/ML 20 ML VIAL IV ONE (14:44)
[2022-06-09] MEDS ORDERED: fentaNYL citrate 100 MCG/2 ML VIAL IV PRN (15:07)
[2022-06-09] MEDS ORDERED: ONDANSETRON INJ 2 MG/ML 2 ML VIAL IV PRN (15:07)
[2022-06-09] MEDS ORDERED: ePHEDrine sulfate 50 MG/ML AMP IV PRN (15:07)
[2022-06-09] MEDS ORDERED: ATROPINE SULFATE 0.1 MG/ML 10ML SYR IV PRN (15:07)
--- NOTE | 2022-06-09 15:13 | History & Physical Bridge Note ---
Date of Service June 09, 2022 History & Physical Bridge Note I have examined the patient, reviewed the History & Physical and in the interval since the performance of the History & Physical I have noted the following changes of clinical significance: no changes noted EUS ERCP Patient was explained in detail regarding risks, benefits, limitations and alternatives of the above endoscopic procedure. Risks of intravenous sedation used for procedure were also explained. Risks include, but not limited to perfo ration, bleeding, infection, respiratory distress, cardiac arrest and . Patient is also aware about the possibility of missed lesion. Patient's questions were answered. The patient verbalized understanding the information and agreed to undergo the procedure.
[2022-06-09] MEDS ORDERED: LABETALOL HCL IV 5 MG/ML 20ML IV ONE (15:29)
--- NOTE | 2022-06-09 15:57 | Operative Report ---
Post Operative Report Pre & Post Diagnosis Operation Date: 06/09/22 07:00 Pre-Op Diagnosis: OBSTRUCTIVE JAUNDICE, ELEVATED LFTS Post-Op Diagnosis: Normal EGD; Gallstones Operation Date: 06/09/22 14:30 <No data on this case meets the specified criteria> I identified the patient and participated in the time-out.: Yes Procedure Operation Date: 06/09/22 07:00 Actual Procedures p Esophagogastroduodenoscopy - Lavelle Arroyo MD p Endoscopic Ultrasonography Upper - Lavelle Arroyo MD Operation Date: 06/09/22 14:30 <No data on this case meets the specified criteria> Surgeon Lavelle Arroyo MD Deputy Jailer None Estimated Blood Loss 0 Findings See Below (No malignancy. Many CBD stones removed, pus drained, stent placed) Specimens None Description of Procedure EUS/ERCP I attest to the content of the Intraoperative Record and any orders documented therein. Any exceptions are noted below.
--- NOTE | 2022-06-09 16:04 | GI REPORT ---
Patient Name: Guera Linn Procedure Date: 06/09/2022 2:39 PM Date of : 1955 Admit Type: Inpatient Age: 67 Gender: Female Attending MD: Lavelle Arroyo MD, Procedure: Upper GI endoscopy Providers: Lavelle Arroyo MD Referring MD: Jon Russell M.d. Indications: Abnormal MRI of the GI tract Medicines: General Anesthesia Complications: No immediate complications. Estimated Blood Loss: Estimated blood loss: none. Procedure: Pre-Anesthesia Assessment: - Prior to the procedure, a History and Physical was performed, and patient medications, allergies and sensitivities were reviewed. The patient's tolerance of previous anesthesia was reviewed. - The risks and benefits of the procedure and the sedation options and risks were discussed with the patient. All questions were answered and informed consent was obtained. - Patient identification and proposed procedure were verified prior to the procedure by the physician and the nurse. The procedure was verified in the procedure room. - Pre-procedure physical examination revealed no contraindications to sedation. After obtaining informed consent, the endoscope was passed under direct vision. Throughout the procedure, the patient's blood pressure, pulse, and oxygen saturations were monitored continuously. The Scope was introduced through the mouth, and advanced to the second part of duodenum. The upper GI endoscopy was accomplished without difficulty. The patient tolerated the procedure well. Findings: The examined esophagus was normal. The entire examined stomach was normal. The duodenal bulb and second portion of the duodenum were normal. Impression: - Normal esophagus. - Normal stomach. - Normal duodenal bulb and second portion of the duodenum. - No specimens collected. Recommendation: - Perform an upper endoscopic ultrasound (UEUS) today. Lavelle Arroyo MD 06/09/2022 4:03:35 PM This report has been signed electronically. Note Initiated On: 06/09/2022 2:39 PM Number of Addenda: 0 I attest to the content of the Intraoperative Record and orders documented therein, exceptions below {[id number]}
--- NOTE | 2022-06-09 16:08 | GI REPORT ---
Patient Name: Guera Linn Procedure Date: 06/09/2022 2:37 PM Date of : 1955 Admit Type: Inpatient Age: 67 Gender: Female Attending MD: Lavelle Arroyo MD, Procedure: Upper EUS Providers: Lavelle Arroyo MD Referring MD: Jon Russell M.d. Indications: Elevated liver enzymes, Suspected choledocholithiasis Medicines: General Anesthesia Complications: No immediate complications. Estimated Blood Loss: Estimated blood loss: none. Procedure: Pre-Anesthesia Assessment: - Prior to the procedure, a History and Physical was performed, and patient medications, allergies and sensitivities were reviewed. The patient's tolerance of previous anesthesia was reviewed. - The risks and benefits of the procedure and the sedation options and risks were discussed with the patient. All questions were answered and informed consent was obtained. - Patient identification and proposed procedure were verified prior to the procedure by the physician and the nurse. The procedure was verified in the procedure room. - Pre-procedure physical examination revealed no contraindications to sedation. After obtaining informed consent, the endoscope was passed under direct vision. Throughout the procedure, the patient's blood pressure, pulse, and oxygen saturations were monitored continuously. The Endosonoscope was introduced through the mouth, and advanced to the second part of duodenum. The upper EUS was accomplished without difficulty. The patient tolerated the procedure well. Findings: ENDOSONOGRAPHIC FINDING: : There was no sign of significant endosonographic abnormality in the ampulla. No masses were identified. There was dilation in the common bile duct which measured up to 9 mm. Ductal wall thickening suggestive of acute cholangitis. Six stones were visualized endosonographically in the common bile duct. They were hyperechoic and characterized by shadowing. There was no sign of significant endosonographic abnormality in the visualized portion of the liver. Homogeneous parenchyma was identified. Few enlarged periportal reactive appearing lymph nodes. There was no sign of significant endosonographic abnormality in the entire pancreas. The pancreatic duct measured up to 2 mm in diameter. There was no sign of significant endosonographic abnormality in the visualized portion of the left adrenal gland. There was no sign of significant endosonographic abnormality involving the celiac trunk. Impression: - There was no sign of significant pathology in the ampulla. - There was dilation in the common bile duct which measured up to 9 mm. - Six stones were visualized endosonographically in the common bile duct. - There was no evidence of significant pathology in the visualized portion of the liver. - There was no sign of significant pathology in the entire pancreas. - Endosonographic images of the left adrenal gland were unremarkable. - The celiac trunk was endosonographically normal. Recommendation: - Perform an ERCP today. Lavelle Arroyo MD 06/09/2022 4:07:26 PM This report has been signed electronically. Note Initiated On: 06/09/2022 2:37 PM Number of Addenda: 0 I attest to the content of the Intraoperative Record and orders documented therein, exceptions below {[id number]}
--- NOTE | 2022-06-09 16:11 | GI REPORT ---
Patient Name: Guera Linn Procedure Date: 06/09/2022 2:36 PM Date of : 1955 Admit Type: Inpatient Age: 67 Gender: Female Attending MD: Lavelle Arroyo MD, Procedure: ERCP Providers: Lavelle Arroyo MD Referring MD: Jon Russell M.d. Indications: For therapy of bile duct stone(s) Medicines: General Anesthesia Complications: No immediate complications. Estimated Blood Loss: Estimated blood loss: none. Procedure: Pre-Anesthesia Assessment: - Prior to the procedure, a History and Physical was performed, and patient medications, allergies and sensitivities were reviewed. The patient's tolerance of previous anesthesia was reviewed. - The risks and benefits of the procedure and the sedation options and risks were discussed with the patient. All questions were answered and informed consent was obtained. - Patient identification and proposed procedure were verified prior to the procedure by the physician and the nurse. The procedure was verified in the procedure room. - Pre-procedure physical examination revealed no contraindications to sedation. After obtaining informed consent, the scope was passed under direct vision. Throughout the procedure, the patient's blood pressure, pulse, and oxygen saturations were monitored continuously. The Duodenoscope was introduced through the mouth, and advanced to the duodenum and used to inject contrast into the bile duct. The ERCP was accomplished without difficulty. The patient tolerated the procedure well. Findings: The grain shoveler film was normal. The esophagus was successfully intubated under direct vision. The scope was advanced to a normal major papilla in the descending duodenum without detailed examination of the pharynx, larynx and associated structures, and upper GI tract. The upper GI tract was grossly normal. A 0.025 inch x 270 cm angled Visiglide wire was passed into the biliary tree. The short-nosed traction sphincterotome was passed over the guidewire and the bile duct was then deeply cannulated. Contrast was injected. I personally interpreted the bile duct images. Ductal flow of contrast was adequate. Image quality was adequate. Contrast extended to the main bile duct. Opacification of the entire biliary tree except for the gallbladder was successful. The maximum diameter of the ducts was 9 mm. Biliary sphincterotomy was made with a monofilament traction (standard) sphincterotome using ERBE electrocautery. There was no post-sphincterotomy bleeding. Dilation of the common bile duct with an 8 mm balloon dilator was successful. The biliary tree was swept with a 12 mm balloon starting at the bifurcation. Many stones were removed. No stones remained. Pus was swept from the duct. One 10 Fr by 9 cm plastic biliary stent with a single external flap and a single internal flap was placed into the common bile duct. Bile flowed through the stent. The stent was in good position. Indomethacin 100 mg was given via suppository to decrease the risk of post-ERCP pancreatitis (PEP). Impression: - Choledocholithiasis with acute choangitis was found. Complete removal was accomplished by biliary sphincterotomy, balloon dilation sphincteroplasty and balloon extraction. - One plastic biliary stent was placed into the common bile duct. Recommendation: - [facility] care. - Complete a 7 days course of ABx. - Surgery for cholecystectomy. - Repeat ERCP in 2 months to remove stent. Lavelle Arroyo MD 06/09/2022 4:10:43 PM This report has been signed electronically. Note Initiated On: 06/09/2022 2:36 PM Number of Addenda: 0 I attest to the content of the Intraoperative Record and orders documented therein, exceptions below {[id number]}
--- NOTE | 2022-06-09 16:40 | Anesthesiology Progress Note ---
Date of Service June 09, 2022 Anesthesia Post Procedure Vital Signs Vital Signs: Temp Pulse Pulse Resp BP Pulse Ox O2 Del Method 06/09/22 16:35 97.2 F L 71 18 158/90 H 96 Room Air 06/09/22 16:25 72 18 152/92 H 96 Room Air 06/09/22 16:15 77 18 159/94 H 96 Room Air 06/09/22 16:07 96.8 F L 85 18 155/107 H 97 Room Air 06/09/22 14:40 98.1 F 87 20 155/110 H 98 Room Air 06/09/22 07:02 98.1 F 80 16 164/93 H 96 Room Air 06/08/22 20:57 97.7 F 81 20 155/90 H 98 Room Air 06/08/22 18:58 85 20 100 Room Air 06/08/22 20:07 98 H 18 160/101 H 98 Room Air Transfer of Care Handoff Completed per policy Notes Mental Status: alert / awake / arousable and participated in evaluation Patient Amnestic to Procedure: Yes Nausea / Vomiting: adequately controlled Pain: adequately controlled Airway Patency, RR, SpO2: stable & adequate BP & HR: stable & adequate Hydration State: stable & adequate Anesthetic Complications: no major complications apparent and Pt Satisfied with anesthetic care
--- NOTE | 2022-06-09 18:03 | Fluoroscopy Report ---
[place] ERCP biliary ductal CLINICAL HISTORY: W/EUS TECHNIQUE: 10 views were obtained with the C-arm in the OR with the above procedure. Total fluoroscop y time was 1 minute 9 seconds. Radiation dose was 30.8 mGy. Comparison: None available at the time of this dictation. FINDINGS/IMPRESSION: Intraoperative images were obtained of ERCP Please correlate with intraoperative fluoroscopy and operative report. ACT 112: Negative or not required by law. Electronically signed by: Abdulaziz Vaughan M.D. 06/09/2022 6:02 PM
[2022-06-10] MEDS: cefUROXime 1,500 MG in DEXTROSE 5% 100 ML IV SCH ×3 (01:56→19:17)
[2022-06-10] MEDS: diphenhydrAMINE 50 MG/ML VIAL IV PRN (02:19)
[2022-06-10] MEDS: metroNIDAZOLE 500 MG/100 ML BAG IV SCH ×2 (04:43→13:27)
--- NOTE | 2022-06-10 07:49 | Anesthesiology Consultation ---
Date of Service June 10, 2022 Assessment & Plan (1) Encounter for pre-operative examination: Chart Review Chart Review: Acceptable Risk for Surgery History Surgery Operation Date: 06/09/22 07:00 Proposed Procedures p Endoscopic Ultrasonography Upper - Lavelle Arroyo MD s Endoscopic Retrograde Cholangiopancreatography - Lavelle Arroyo MD Operation Date: 06/09/22 14:30 Proposed Procedures p Endoscopic Retrograde Cholangiopancreato - Lavelle Arroyo MD s Endoscopic Ultrasonography Upper - Lavelle Arroyo MD Operation Date: 06/10/22 08:25 Proposed Procedures p Laparoscopic Cholecystectomy Possible Open Possible Cholangiogram - Franco Edward, Height/Weight Height: 5 ft 8 in Weight: 97.9 kg Allergies Allergy/AdvReac Type Severity Reaction Status Date / Time Penicillins Allergy Anaphylaxis Verified 06/08/22 17:27 Medications Home Medications Medication Instructions Recorded Confirmed Last Taken cholestyramine (with sugar) 4 gram 1 ea PO BID 06/08/22 06/08/22 Unknown oral powder hydroxyzine HCl 25 mg tablet 25 mg PO QID PRN as directed 06/08/22 06/08/22 Unknown Active Medications Generic Name Dose Route Start Last Admin Trade Name Freq PRN Reason Stop Dose Admin Diphenhydramine HCl 25 mg 06/09/22 04:50 06/10/22 02:19 Diphenhydramine 50 Mg/Ml Vial IV 07/09/22 04:49 25 mg Q4H PRN Administration Itching Metronidazole 500 mg in 100 mls @ 100 mls/hr 06/08/22 20:00 06/10/22 05:45 Flagyl IV 06/10/22 19:59 Infused Q8H DAVID Infusion Cefuroxime Sodium 1,500 mg/ 115 mls @ 200 mls/hr 06/09/22 01:00 06/10/22 02:30 Dextrose IV 06/13/22 00:59 Infused Q8H DAVID Infusion Protocol NPO Date Last Intake of Fluids: 06/08/22 Time Last Intake of Fluids: 23:00 Date Last Intake of Solids: 06/08/22 Time Last Intake of Solids: 12:00 Past Medical History Medical History Patel's palsy Obstructive jaundice Recurrent pyelonephritis Past Surgical History Surgical History History of arthroscopic knee surgery History of repair of ACL Social History Smoking Status: Never smoker Do You Dip or Chew Tobacco: No Hx Alcohol Use: No Hx Substance Use: No substance use type: does not use Physical Exam Vital Signs Last Vital Signs Temp 36.9 C 06/10/22 07:16 Pulse 70 06/10/22 07:16 Resp 16 06/10/22 07:16 BP 145/83 H 06/10/22 07:16 Pulse Ox 91 06/10/22 07:16 O2 Del Method 06/10/22 07:16 Testing Laboratory Results 06/09/22 06:36 06/09/22 06:36 PT 10.6 Seconds (9.0-12.0) 06/09/22 06:36 INR 1.0 (0.9-1.1) 06/09/22 06:36 Urine Color Dark Yellow 06/08/22 17:40 Urine Appearance Clear (Clear) 06/08/22 17:40 Urine pH 5.5 (4.5-7.5) 06/08/22 17:40 Ur Specific [place] 1.010 (1.000-1.030) 06/08/22 17:40 Urine Protein Negative (Negative) 06/08/22 17:40 Urine Glucose (UA) Negative (Negative) 06/08/22 17:40 Urine Ketones Negative (Negative) 06/08/22 17:40 Urine Nitrite Negative (Negative) 06/08/22 17:40 Ur Leukocyte Esterase Trace (Negative) H 06/08/22 17:40 Urine WBC (Auto) 5-10 /hpf (0-5) H 06/08/22 17:40 Urine RBC (Auto) 0-4 /hpf (0-4) 06/08/22 17:40 U Hyaline Cast (Auto) 1-5 /lpf (0-5) 06/08/22 17:40 U Epithel Cells (Auto) 10-20 /lpf (0-5) H 06/08/22 17:40 Urine Bacteria (Auto) Negative (Negative) 06/08/22 17:40 Electrocardiogram Date: 06/09/22 Findings: + NSR @ (79) and + poor R wave progression can't rule out inferior infarct
[2022-06-10 08:05] LABS: Basophils # (auto) 0.05 K/uL (0-0.2); Basophils % (auto) 0.8 %; Eosinophils # (auto) 0.05 K/uL (0-0.50); Eosinophils % (auto) 0.8 %; Hematocrit (blood only) 37.3 % (34.1-44.9); Hemoglobin 12.5 g/dl (12.0-16.0); Immature Granulocytes # (auto) 0.02 K/uL (0.00-0.02); Immature Granulocytes % (auto) 0.3 %; Lymphocytes # (auto) 1.53 K/uL (1.2-3.4); Lymphocytes % (auto) 23.8 %; Mean Corpuscular Hemoglobin 30.1 pg (25.0-34.0); Mean Corpuscular Hgb Conc 33.5 g/dL (32.0-36.0); Mean Corpuscular Volume 89.9 fL (80.0-100.0); Monocytes # (auto) 0.67 K/uL (0.24-0.82); Monocytes % (auto) 10.4 %; Neutrophils # (auto) 4.11 K/uL (1.4-6.5); Neutrophils % (auto) 63.9 %; Platelet Count 316 K/uL (130-400); RDW Standard Deviation 49.5 fL (36.4-46.3); Red Blood Count 4.15 M/uL (3.93-5.22); White Blood Count 6.43 K/ul (4.8-10.8)
[2022-06-10] MEDS ORDERED: ACETAMINOPHEN 1000 MG/100 ML IV IV ONE (08:14)
[2022-06-10] MEDS ORDERED: FAMOTIDINE/PF 20 MG/2 ML VIAL IV ONE (08:14)
[2022-06-10 08:37] LABS: Albumin Level 3.4 gm/dl (3.4-5.0); Bilirubin Direct 7.8 mg/dl (0-0.2); Bilirubin,Total 14.2 mg/dl (0.2-1.0); Calcium 9.1 mg/dl (8.5-10.1); Potassium 3.6 mmol/L (3.5-5.1)
[2022-06-10 08:43] LABS: BUN Creatinine Ratio 16.7 (10-20); Creatinine Clr Calc Pharmacy 85.6 ml/min; Est GFR (African American) 91.2 ml/min; Est GFR (Non-African American) 78.7 ml/min; Phosphorus 3.1 mg/dl (2.5-4.9); Total Protein 6.6 gm/dl (6.0-8.3)
--- NOTE | 2022-06-10 09:17 | Communication Note ---
Date of Service: June 10, 2022 Attempted to evaluate patient x 2. She is out of her room. S/P EGD/EUS/ERC Choledocholithiasis with acute cholangitis was noted s/p biliary sph incterotomy, balloon dilation sphincteroplasty and balloon extraction w/ plastic biliary stent was placed into the CBD. Trend LFTs. Complete a 7 days course of ABX.Surgery for cholecystectomy. Repeat ERCP in 2 months to remove stent
[2022-06-10] MEDS ORDERED: KETOROLAC 30 MG/ML VIAL IV PRN (09:27)
[2022-06-10] MEDS ORDERED: ONDANSETRON INJ 2 MG/ML 2 ML VIAL IV PRN (09:27)
[2022-06-10] MEDS ORDERED: LABETALOL HCL IV 5 MG/ML 20ML IV PRN (09:27)
[2022-06-10] MEDS ORDERED: PROMETHAZINE HCL 6.25 MG in SODIUM CHLORIDE 0.9% 50 ML IV PRN (09:27)
[2022-06-10] MEDS ORDERED: ATROPINE SULFATE 0.1 MG/ML 10ML SYR IV PRN (09:27)
--- NOTE | 2022-06-10 09:29 | Surgery Progress Note ---
Date of Service June 10, 2022 Assessment & Plan (1) Choledocholithiasis: Plan: ERCP images and results personally viewed by myself, no signs of malignancy however she did have choledocholithiasis and cholangitis She continues to be without abdominal pain We will proceed with laparoscopic cholecystectomy, possible open, possible intraoperative cholangiogram today Consent was obtained, risk discussed including bleeding, infection, bile leak, ductal injury (2) Gallstones: Admission and Anticipated Discharge Date Admission Date: June 08, 2022 Subjective Patient seen and examined. Denies abdominal pain. Still has scleral icterus. Denies nausea vomiting. Afebrile. Review of Systems Constitutional: no fever and no chills Physical Exam Constitutional: WD/WN, vitals as above Gastrointestinal (Abdomen): Inspection/Auscultation: abdomen normal to inspection; abdomen not distended Percussion/Palpation: abdomen soft; abdomen nontender, no guarding and no hernia Results & Data ([facility]) Vital Signs (Past 12 Hours) Vital Signs Temp Pulse Pulse Resp BP Pulse Ox O2 Del Method 06/10/22 08:44 36.7 C 82 18 160/98 H 97 Room Air 06/10/22 07:16 36.9 C 70 16 145/83 H 91 Room Air 06/10/22 02:00 36.8 C 80 14 120/80 94 Room Air 06/09/22 22:13 36.3 C L 82 14 124/82 94 Room Air PG Care Time/CCT Total # of Minutes Spent Total Time Spent with Patient: Total time spent is greater than 50% in coordination of care (as documented) at patient's floor/unit and/or counseling patient: Coding Level of Care Code 88106 SUB INP/OBS CARE 06/17MIN Diagnoses Choledocholithiasis K80.50 Gallstones K80.20
[2022-06-10] MEDS ORDERED: MIDAZOLAM HCL 1 MG/ML 2ML VIAL ONE ×2 (09:44)
[2022-06-10] MEDS ORDERED: fentaNYL citrate 100 MCG/2 ML VIAL ONE ×3 (09:44→11:43)
[2022-06-10] MEDS ORDERED: PROPOFOL IV EMULSION 10 MG/ML 20 ML VIAL IV ONE ×2 (09:45→11:13)
[2022-06-10] MEDS ORDERED: ROCURONIUM BROMIDE 10 MG/ML 5 ML VIAL IV ONE (09:45)
[2022-06-10] MEDS ORDERED: LIDOCAINE 2% MPF LOCAL 5 ML VIAL INFIL ONE (09:45)
[2022-06-10] MEDS ORDERED: ONDANSETRON INJ 2 MG/ML 2 ML VIAL ONE ×2 (09:46→11:33)
[2022-06-10] MEDS ORDERED: DEXAMETHASONE SOD INJ 4 MG/ML VIAL ONE (09:46)
[2022-06-10] MEDS ORDERED: BUPIVACAINE/EPINEPHRINE 0.25% 1:200,000 30 ML VIAL ONE (09:51)
[2022-06-10] MEDS ORDERED: SCOPOLAMINE 1 MG TDSY TD ONE (09:55)
[2022-06-10] MEDS ORDERED: METOCLOPRAMIDE HCL INJ 5 MG/ML 2 ML VIAL ONE (10:24)
[2022-06-10] MEDS ORDERED: NEOSTIGMINE METHYLSULFATE 1 MG/ML 10ML VIAL ONE (10:50)
[2022-06-10] MEDS ORDERED: GLYCOPYRROLATE 0.2 MG/ML VIAL ONE (10:50)
--- NOTE | 2022-06-10 11:48 | Post Operative Brief Note ---
PG Immediate Post Op with CF Date of Surgery June 10, 2022 Pre & Post Diagnosis Operation Date: 06/10/22 08:25 Pre-Op Diagnosis: (1) Choledocholithiasis Post-Op Diagnosis: (1) Choledocholithiasis, acute cholecystitis I identified the patient and participated in the time-out.: Yes Procedure Operation Date: 06/10/22 08:25 Actual Procedures p Laparoscopic Cholecystectomy (Not Applicable) - Franco Edward DO Surgeon Franco Edward DO Merchandise Associate Kelin Atkinson PA-C Estimated Blood Loss 0 Findings See Below Acutely inflamed gallbladder with a thickened wall, with edema consistent with acute cholecystitis Specimens Specimen Description: a. Gallbladder Anesthesia Type General Complications none Disposition Disposition: Recovery Room
--- NOTE | 2022-06-10 11:51 | Operative Report ---
PG Post Operative Report Pre & Post Diagnosis Operation Date: 06/10/22 08:25 Pre-Op Diagnosis: (1) Choledocholithiasis: Post-Op Diagnosis: (1) Choledocholithiasis, acute cholecystitis I identified the patient and participated in the time-out.: Yes Procedure Operation Date: 06/10/22 08:25 Actual Procedures p Laparoscopic Cholecystectomy (Not Applicable) - Franco Edward DO Surgeon Franco Edward DO [place] Department Supervisor Kelin Atkinson PA-C Estimated Blood Loss 25 Findings See Below Acutely inflamed gallbladder with a thickened wall, with edema consistent with acute cholecystitis Fluids see anesthesia record Specimens Gallbladder pathology Drains None Anesthesia Type General Complications none Disposition Disposition: Recovery Room Indications 67-year-old female with elevated bilirubin, choledocholithiasis and acute cholangitis Description of Procedure The patient was brought to the operating room and placed in the supine position with both arms extended. At this time she underwent general endotracheal anesthesia without any problems. She was given appropriate pre-operative antibiotics. Her abdomen prepped and draped in the usual sterile fashion. A timeout was called, the procedure was verified as Laparoscopic cholecystectomy, possible open, possible intra-operative cholangiogram. Surgical, nursing and anesthesia teams agreed and the procedure was begun. After injection of 0.25% Marcaine with epinephrine, a supraumbilical vertical incision was made and carried down to the fascia using S-retractors. The abdominal wall was then elevated with towel clamps and abdomen entered using the Veress needle confirming position using the saline drop test. Pneumoperitoneum was established. 5mm trocar was placed. Laparoscope was introduced. No injury from entry into the abdomen was visualized after inspection of the abdomen. Three further ports were placed under direct visualization. One 11mm in the subxiphoid region and two 5mm in the RUQ. At this time the abdomen was inspected and the gallbladder identified. The gallbladder fundus was grasped and retracted cephalad. There were dense omental adhesions to the gallbladder which were lysed using blunt dissection as well as sharp dissection with scissors. The gallbladder infundibulum was then grasped and retracted laterally. The entire gallbladder was thickened and edematous consistent with acute cholecystitis. The cystic duct and cystic artery were then identified and skeletonized. The critical view of safety was obtained. They were both then clipped twice proximally and once distally and then divided using scissors. The gallbladder was then taken off of the liver bed using electrocautery and placed in an endocatch bag and removed from the subxiphoid port. The liver bed was then inspected and no bile leak or bleeding was evident. The subxiphoid port was then closed using 0-Vicryl using the suture passer. The trocars were then removed under direct visualization and no bleeding was present. Abdomen was desufflated. The skin was then closed using 4-0 Monocryl in a subcuticular fashion. Surgical glue was applied. Needle and sponge counts were correct x 2. At this time the patient was awoken from anesthesia and extubated having remained stable throughout the entire case. The patient was then transported to PACU in stable condition. The physician transportation assistant was present scrubbed for the entire case. She was essential in positioning, prepping and draping the patient, retraction exposure, driving the laparoscope, closure of the incisions and placement of the dressings. I attest to the content of the Intraoperative Record and any orders documented therein. Any exceptions are noted below.
[2022-06-10] MEDS: fentaNYL citrate 100 MCG/2 ML VIAL IV PRN ×4 (12:15→12:30)
--- NOTE | 2022-06-10 12:40 | Anesthesiology Progress Note ---
Date of Service June 10, 2022 Anesthesia Post Procedure Vital Signs Vital Signs: Temp Pulse Pulse Resp BP Pulse Ox O2 Del Method 06/10/22 12:30 79 19 148/86 H 95 Room Air 06/10/22 12:20 72 15 155/95 H 100 Oxymask 06/10/22 12:10 84 24 175/97 H 100 Oxymask 06/10/22 12:00 36.9 C 87 19 189/104 H 100 Oxymask 06/10/22 08:44 36.7 C 82 18 160/98 H 97 Room Air 06/10/22 07:16 36.9 C 70 16 145/83 H 91 Room Air 06/10/22 02:00 36.8 C 80 14 120/80 94 Room Air 06/09/22 22:13 36.3 C L 82 14 124/82 94 Room Air 06/09/22 19:56 36.8 C 73 16 116/70 96 Room Air 06/09/22 18:52 37 C 73 16 123/74 97 Room Air 06/09/22 17:56 37 C 72 16 143/85 H 93 Room Air 06/09/22 16:50 36.9 C 72 16 141/84 H 96 Room Air 06/09/22 16:35 36.2 C L 71 18 158/90 H 96 Room Air 06/09/22 16:25 72 18 152/92 H 96 Room Air 06/09/22 16:15 77 18 159/94 H 96 Room Air 06/09/22 16:07 36.0 C L 85 18 155/107 H 97 Room Air 06/09/22 14:40 36.7 C 87 20 155/110 H 98 Room Air O2 Flow Rate 06/10/22 12:30 06/10/22 12:20 6 06/10/22 12:10 6 06/10/22 12:00 10 06/10/22 08:44 06/10/22 07:16 06/10/22 02:00 06/09/22 22:13 06/09/22 19:56 06/09/22 18:52 06/09/22 17:56 06/09/22 16:50 06/09/22 16:35 06/09/22 16:25 06/09/22 16:15 06/09/22 16:07 01/17/23 14:40 Pain Intensity Abdomen: Pain Intensity: 4 Transfer of Care Handoff Completed per policy Notes Mental Status: alert / awake / arousable Patient Amnestic to Procedure: Yes Nausea / Vomiting: adequately controlled Pain: adequately controlled Airway Patency, RR, SpO2: stable & adequate BP & HR: stable & adequate Hydration State: stable & adequate Anesthetic Complications: no major complications apparent
[2022-06-10] MEDS ORDERED: MoRPHine SULFATE 2 MG/ML CARP IV PRN (13:01)
[2022-06-10] MEDS ORDERED: oxyCODONE HCL IR 5 MG TAB (IMMEDIATE RELEASE) PO PRN (13:01)
[2022-06-10] MEDS ORDERED: MoRPHine SULFATE 4 MG/ML 1 ML CARP\\VIAL IM PRN (13:01)
[2022-06-10] MEDS ORDERED: ACETAMINOPHEN 325 MG TAB PO PRN (13:01)
[2022-06-10] MEDS: LACTATED RINGER'S 1,000 ML IV SCH ×2 (13:10→20:23)
--- NOTE | 2022-06-10 15:21 | Progress Note ---
Date of Service June 10, 2022 Assessment & Plan (1) Obstructive jaundice: Plan: 67yo female without significant medical history presents to [facility] upon the request of her rn wellness for an ERCP after labs showed obstructive jaundice and MRCP imaging showed gallbladder wall thickening, multiple gallstones, CBD dilation, intrahepatic ductal dilation, and two small areas of signal intensity of the pancreas body/tail suggestive of neoplasms. Painless jaundice, transaminitis, pruritus, gallstones, pancreatic masses * Patient with a three-week history of indigestion, 2.5-week history of pruritus, and 10-day history of jaundice * MRCP findings (06/03) noted in HPI * s/p ERCP on 06/10 w/ stenting * s/p Lap charmaine today. * Continue cefoxitin, add metronidazole for prophylaxis * Trend CBC, CMP * GI/General Surgery managing otherwise. Code status: full code DVT ppx: SCDs Held home meds: cholestyramine Consults: gastroenterology PT/OT: ordered Dispo: med/surg (2) Transaminitis: (3) Gallstones: (4) Choledocholithiasis: Admission and Anticipated Discharge Date Admission Date: June 08, 2022 Subjective Patient was seen and evaluated at bedside. She is drowsy after her surgical intervention. She complains of some mild abdominal discomfort. Otherwise, she offers not complaints. Review of Systems Review of Systems: A complete 6 point review of systems was reviewed with the patient with pertinent positives and negatives as per history of present illness. All else were negative. Physical Exam Physical Exam: VITAL SIGNS - Vital signs and nursing notes were reviewed. GENERAL - 67-year-old female appearing her stated age who is in no acute distress. Communicates well with provider and answers questions appropriately. SKIN - Jaundiced. LUNGS - Chest wall symmetric without accessory muscle use, intercostals retractions, or central cyanosis. Normal vesicular breath sounds CTA B/L. No wheezes, rales, or rhonchi appreciated. CARDIAC - RRR with S1/S2. No murmur, rubs, or gallops appreciated. ABDOMEN - Abdominal contour obese without pulsations or visible masses. BS normoactive all four quadrants. Mild TTP throughout. PSYCH - A&Ox3 and cooperates fully with examiner. Pt is very pleasant and interacts well with examiner. Results & Data ([facility]) Vital Signs (Past 12 Hours) Vital Signs Temp Pulse Pulse Resp BP Pulse Ox O2 Del Method 06/10/22 15:01 36.5 C 83 16 133/83 93 Room Air 06/10/22 14:01 36.8 C 81 16 145/84 H 95 Room Air 06/10/22 13:30 76 14 150/86 H 94 Room Air 06/10/22 12:59 36.9 C 76 16 144/85 H 96 Room Air 06/10/22 12:45 73 19 145/78 H 94 Room Air 06/10/22 12:40 37.0 C 79 18 152/81 H 96 Room Air 06/10/22 12:30 79 19 148/86 H 95 Room Air 06/10/22 12:20 72 15 155/95 H 100 Oxymask 06/10/22 12:10 84 24 175/97 H 100 Oxymask 06/10/22 12:00 36.9 C 87 19 189/104 H 100 Oxymask 06/10/22 08:44 36.7 C 82 18 160/98 H 97 Room Air 06/10/22 07:16 36.9 C 70 16 145/83 H 91 Room Air O2 Flow Rate 06/10/22 15:01 06/10/22 14:01 06/10/22 13:30 06/10/22 12:59 06/10/22 12:45 06/10/22 12:40 06/10/22 12:30 06/10/22 12:20 6 06/10/22 12:10 6 06/10/22 12:00 10 06/10/22 08:44 06/10/22 07:16 PG Care Time/CCT Total # of Minutes Spent Total Time Spent with Patient: Total time spent is greater than 50% in coordination of care (as documented) at patient's floor/unit and/or counseling patient: Coding Level of Care Code 09786 SUB INP/OBS CARE 3/50MIN Diagnoses Obstructive jaundice K83.1 Transaminitis R74.01 Gallstones K80.20 Choledocholithiasis K80.50 Time Spent (min) 32
[2022-06-10] MEDS: oxyCODONE HCL IR 5 MG TAB (IMMEDIATE RELEASE) PO PRN (18:39)
[2022-06-11] MEDS: cefUROXime 1,500 MG in DEXTROSE 5% 100 ML IV SCH ×2 (01:04→08:46)
[2022-06-11] MEDS: oxyCODONE HCL IR 5 MG TAB (IMMEDIATE RELEASE) PO PRN ×2 (03:24→14:38)
--- NOTE | 2022-06-11 05:42 | Electrocardiogram Report ---
Test Reason : Blood Pressure : / mmHG Vent. Rate : 079 BPM Atrial Rate : 079 BPM P-R Int : 164 ms QRS Dur : 088 ms QT Int : 396 ms P-R-T Axes : 042 -10 025 degrees QTc Int : 454 ms Normal sinus rhythm Inferior infarct , age undetermined Cannot rule out Anterior infarct , age undetermined Abnormal ECG No previous ECGs available Confirmed by Kenny Alexander ([id number]) on 06/11/2022 5:41:54 AM Referred By: REFERRED SELF Confirmed By:Kenny Alexander
[2022-06-11 07:18] LABS: Basophils # (auto) 0.01 K/uL (0-0.2); Basophils % (auto) 0.1 %; Hematocrit (blood only) 33.8 % (34.1-44.9); Hemoglobin 11.6 g/dl (12.0-16.0); Immature Granulocytes # (auto) 0.04 K/uL (0.00-0.02); Immature Granulocytes % (auto) 0.4 %; Lymphocytes # (auto) 1.03 K/uL (1.2-3.4); Lymphocytes % (auto) 9.3 %; Mean Corpuscular Hemoglobin 30.6 pg (25.0-34.0); Mean Corpuscular Hgb Conc 34.3 g/dL (32.0-36.0); Mean Corpuscular Volume 89.2 fL (80.0-100.0); Mean Platelet Volume 11.2 fL (9.4-12.3); Monocytes # (auto) 0.89 K/uL (0.24-0.82); Neutrophils % (auto) 82.2 %; Platelet Count 336 K/uL (130-400); RDW Coefficient of Variation 15.1 % (11.5-14.5); RDW Standard Deviation 49.1 fL (36.4-46.3); Red Blood Count 3.79 M/uL (3.93-5.22); White Blood Count 11.07 K/ul (4.8-10.8)
--- NOTE | 2022-06-11 08:28 | Surgery Progress Note ---
Date of Service June 11, 2022 Assessment & Plan (1) Choledocholithiasis: Plan: POD#[address] Edward, POD#2 ERCP with GI WBC 11, BMP pending. Vital signs are stable Incisions c/d/i. Abdomen soft, mild discomfort to palpation brenda incisionally Okay to advance diet as tolerates from our standpoint Abx per GI given cholangitis on ERCP F/u in clinic with Dr. Edward within 2 weeks Admission and Anticipated Discharge Date Admission Date: June 08, 2022 Supervising Physician Co-Signing Physician Notes I personally saw and evaluated the patient with Kelin Vigil PA-C and agree with the assessment and plan. 67-year-old female postoperative day 1 laparoscopic cholecystectomy She is doing well postoperatively with minimal pain She tolerating clear liquids, can advance as tolerated She can be discharged from a surgical standpoint later today if she tolerates her diet We will arrange for follow-up in 2 weeks as an outpatient She also need to follow-up with GI for repeat ERCP and stent removal Will sign off at this time, please call with any questions or concerns Subjective Patient is doing pretty well. Has some expected post surgical discomfort she states feels like a muscle pull. Otherwise it is manageable. No nausea/vomiting. Tolerating clears. Physical Exam Physical Exam: awake/alert, no distress Respiratory: normal respiratory effort Gastrointestinal (Abdomen): Inspection/Auscultation: + abdominal surgical incision (c/d/i ); abdomen not distended Percussion/Palpation: + abdomen tender (expected brenda incisional discomfort to palpation ) and abdomen soft Results & Data ([facility]) Vital Signs (Past 12 Hours) Vital Signs Temp Pulse Resp BP Pulse Ox O2 Del Method 06/11/22 07:27 37.1 C 69 16 129/76 94 Room Air 06/11/22 03:20 36.6 C 68 17 125/75 95 Room Air 06/10/22 22:51 36.9 C 84 17 125/71 94 Room Air PG Care Time/CCT Total # of Minutes Spent Total Time Spent with Patient: Total time spent is greater than 50% in coordination of care (as documented) at patient's floor/unit and/or counseling patient: Coding Level of Care Code None Diagnoses Choledocholithiasis K80.50
[2022-06-11 08:31] LABS: Albumin Level 3.1 gm/dl (3.4-5.0); BUN Creatinine Ratio 21.4 (10-20); Bilirubin Direct 7.4 mg/dl (0-0.2); Calcium 8.7 mg/dl (8.5-10.1); Creatinine Clr Calc Pharmacy 95.4 ml/min; Est GFR (African American) 103.9 ml/min; Est GFR (Non-African American) 89.7 ml/min; Potassium 4.1 mmol/L (3.5-5.1); Total Protein 6.1 gm/dl (6.0-8.3)
--- NOTE | 2022-06-11 12:09 | Discharge Summary ---
Date of Service June 11, 2022 Admission HPI Per Admitting Provider 67yo female without significant medical history presents to [facility] upon the request of her puppet maker for an ERCP. About three weeks ago, patient developed indigestion which resolved with prilosec. Then, about 2.5 week ago, patient developed severe itchiness unresponsive to steroid creams and hydroxyzine, though with some improvement with cholestyramine. Then, about ten days ago, patient developed yellowing of the skin on her arms, legs, trunk, and face. Patient denies fever, chills, headache, CP, palpitations, SOB, edema, abdominal pain, nausea, vomiting, dysuria, hematochezia, melena, back pain, lightheadedness, dizziness, numbness, tingling, weakness, or other symptoms. Denies recent illness and recent travel. Patient has had an ongoing workup by her puppet maker at [facility] ([place]); patient had labs done five days ago which showed the following: Total bilirubin 11.3 Direct bilirubin 9.2 Indirect bilirubin 2.1 Alk phos: 263 AST 139 ALT 240 Total protein 9.2 Patient had an MRCP performed the same day which showed the following: Gallbladder wall thickened; multiple gallstones in gallbladder; US gallbladder recommended Common bile duct is mildly dilated measuring up to 8mm in diameter; mild intrahepatic ductal dilatation is seen Four or five rounded filling defects are seen within the common bile duct, probably due to gallstones Two small rounded areas of fluid signal intensity are seen in the region of the body/tail of the pancreas measuring up to 4mm in diameter suggesting small intraductal papillary mucinous neoplasms As a result of these lab and imaging results, patient was sent to the [facility] ED for urgent ERCP. Upon arrival, vitals were notable for elevated BP (150s/100s) and mild tachycardia (101); no tachypnea, patient afebrile, spO2 adequate on room air. Initial labs were notable for elevated Tbili (12.7), elevated Dbili (7.2), elevated ALT (59), and elevated alkphos (235); no leukocytosis, no anemia, platelets wnl, no electrolyte abnormalities, creatinine not elevated, AST not elevated, total protein/albumin/globulin not elevated, covid PCR negative. In the ED, patient received an NSS 500mL bolus (x1) and a dose of cefoxitin. Admission Exam (Per Admitting) Constitutional WD/WN, vitals as above well developed and well nourished; no acute distress ENMT Mouth: no dentition abnormality Mallampati Class: I Neck normal visual inspection Respiratory normal respiratory effort, lungs clear to auscultation normal respiratory effort; no respiratory distress Auscultation: lungs clear to auscultation bilaterally Cardiovascular RRR, no murmur, no edema Rate/Rhythm: regular rate and regular rhythm Heart Sounds: no murmur Gastrointestinal (Abdomen) normal bowel sounds, soft, nontender, no hepatosplenomegaly Inspection/Auscultation: abdomen normal to inspection and + abdominal surgical incision (c/d/i ); abdomen not distended Percussion/Palpation: + abdomen tender (expected brenda incisional discomfort to palpation ) and abdomen soft; no guarding and no hernia Musculoskeletal Spine: normal cervical ROM Skin + jaundice Psychiatric Orientation: alert and oriented x 3 Discharge Data Consultations 06/08/22 18:03 ED Decision to Admit Stat 06/08/22 19:09 HIM [Consult Health Information Management] Routine 06/09/22 07:00 Consult Gastroenterology Routine Consult General Surgery Routine Procedures Performed Operation Date: 06/09/22 07:00 Actual Procedures s Esophagogastroduodenoscopy - Lavelle Arroyo MD s Endoscopic Ultrasonography Upper - Lavelle Arroyo MD p Endoscopic Retrograde Cholangiopancreato with Stent placement - Lavelle Arroyo MD Operation Date: 06/09/22 14:30 <No data on this case meets the specified criteria> Operation Date: 06/10/22 08:25 Actual Procedures p Laparoscopic Cholecystectomy (Not Applicable) - Franco Edward, DO Hospital Course (1) Obstructive jaundice: 67yo female without significant medical history presents to [facility] upon the request of her puppet maker for an ERCP after labs showed obstructive jaundice and MRCP imaging showed gallbladder wall thickening, multiple gallstones, CBD dilation, intrahepatic ductal dilation, and two small areas of signal intensity of the pancreas body/tail suggestive of neoplasms. Painless jaundice, transaminitis, pruritus, gallstones, pancreatic masses * Patient with a three-week history of indigestion, 2.5-week history of pruri tus, and 10-day history of jaundice * MRCP findings (06/03) noted in HPI * s/p ERCP on 06/10 w/ stenting * s/p Lap charmaine. * Progress diet today. * Transition to PO Cipro x7 days per GI. * Outpatient GI/Gen Sx follow-up * Repeat LFTs per [facility] * Plan for d/c today. (2) Transaminitis: (3) Gallstones: (4) Choledocholithiasis: Coding Level of Care Code HOSP INP/OBS DISCH >30 MIN Diagnoses Obstructive jaundice K83.1 Transaminitis R74.01 Gallstones K80.20 Choledocholithiasis K80.50 Time Spent (min) 45
[2022-06-11] MEDS ORDERED: CIPROFLOXACIN 500 MG TAB PO SCH (13:00)
[2022-06-11] MEDS: LACTATED RINGER'S 1,000 ML IV SCH (15:19)
== END 2022-06-11 16:18 | disposition home or self-care (01) | DRG 419 ==
LOC: ED 16:23 → EDINP 16:23 → SUATTDRO 20:29 → 3N 20:45
DX: D13.6 Benign neoplasm of pancreas; K80.43 Calculus of bile duct with acute cholecystitis with obstruction; Z79.899 Other long term (current) drug therapy; Z88.0 Allergy status to penicillin; K80.63 Calculus of gallbladder and bile duct with acute cholecystitis with obstruction